=== PATIENT | male | born 1960 | race African-American/Black ===

== ENCOUNTER 2017-01-03 22:09 | Emergency (ER) | payer OTHER ==
[~2017-01-03] VITALS: Ht 180.3 cm; Wt 91.0 kg
[~2017-01-03 22:09] MED LIST: ALBU6.7H INH
[2017-01-04 00:15] VITALS: BP 136/89
== END 2017-01-04 00:17 | disposition home or self-care (01) ==
LOC: ER 01-04 00:05
DX: S01.81XA Laceration without foreign body of other part of head, initial encounter (principal); J44.9 Chronic obstructive pulmonary disease, unspecified; Z88.0 Allergy status to penicillin; X99.9XXA Assault by unspecified sharp object, initial encounter; Y93.89 Activity, other specified; Y92.488 Other paved roadways as the place of occurrence of the external cause
CPT/HCPCS: 12011; 99283

== ENCOUNTER 2017-12-29 10:19 | Emergency (ER) | payer OTHER ==
[~2017-12-29] VITALS: Ht 180.3 cm; Wt 82.0 kg
[2017-12-29] MEDS ORDERED: IBUPROFEN 800MG TABLET PO ONE (14:30)
[2017-12-29] MEDS ORDERED: ACETAMINOPHEN 325MG TABLET PO ONE (14:30)
[2017-12-29] MEDS ORDERED: TETANUS, DIPHTHERIA, PERTUSSIS VAC/PF 0.5ML (>7YR OLD) IM ONE (15:15)
[2017-12-29 17:20] VITALS: BP 122/77
== END 2017-12-29 18:33 | disposition home or self-care (01) ==
LOC: ER 11:19
DX: S80.01XA Contusion of right knee, initial encounter (principal); W10.8XXA Fall (on) (from) other stairs and steps, initial encounter; Y93.01 Activity, walking, marching and hiking; Y92.018 Other place in single-family (private) house as the place of occurrence of the external cause; Z23 Encounter for immunization; B19.20 Unspecified viral hepatitis C without hepatic coma; E78.00 Pure hypercholesterolemia, unspecified; J44.9 Chronic obstructive pulmonary disease, unspecified; F17.210 Nicotine dependence, cigarettes, uncomplicated; Z88.0 Allergy status to penicillin
CPT/HCPCS: 73562; 90471; 90715; 99284; L1830

== ENCOUNTER 2021-04-06 18:05 | Emergency (ER) | payer MEDICAID, OTHER ==
[~2021-04-06] VITALS: Ht 180.3 cm; Wt 80.0 kg
[~2021-04-06 18:05] MED LIST changes: -ALBU6.7H INH; +ALBU6.7H15 INH
[2021-04-06 18:22] VITALS: BP 160/107
[2021-04-07] MEDS ORDERED: NAPR375T5 MT (10:15)
== END 2021-04-06 21:00 | disposition left against medical advice (07) ==
LOC: ER 18:40
DX: Z53.21 Procedure and treatment not carried out due to patient leaving prior to being seen by health care provider (principal)
CPT/HCPCS: 99281

== ENCOUNTER 2021-04-07 08:59 | Emergency (ER) | payer MEDICAID ==
[~2021-04-07] VITALS: Ht 180.3 cm; Wt 82.0 kg
[~2021-04-07 08:59] MED LIST changes: +ALBU6.7H11 INH; -ALBU6.7H15 INH
[2021-04-07] MEDS ORDERED: KETOROLAC 60MG/2ML VIAL IM ONE (09:30)
[2021-04-07 09:34] VITALS: BP 172/89
[2021-04-07] MEDS ORDERED: NAPR375T5 MT (10:15)
== END 2021-04-07 10:33 | disposition home or self-care (01) ==
LOC: ER 09:06
DX: M54.5 Low back pain (principal); M25.552 Pain in left hip; J44.9 Chronic obstructive pulmonary disease, unspecified; E78.00 Pure hypercholesterolemia, unspecified; Z88.0 Allergy status to penicillin
CPT/HCPCS: 72100; 73502; 96372; 99284; J1885